=== PATIENT | female | born 1990 | race Caucasian/White ===

== ENCOUNTER → 2019-12-20 | Outpatient (CLI) | payer OTHER ==
--- NOTE | 2019-12-21 08:56 | USB ---
Reason for exam: clinical finding. History: Family history of breast cancer in maternal grandmother. Indicated problem(s): pain in both breasts. Physical Findings: Nurse did not find any significant physical abnormalities on exam. US Breast BILAT Right complete breast ultrasound includes all four quadrants, the retroareolar region and axilla. Finding demonstrates a 0.3 x 0.3 x 0.2cm oval, cystic lesion at 3 o'clock and a 0.5 x 0.3 x 0.2cm oval, cystic lesion at 11 o'clock. Right 10 o'clock palpable dense tissue. Left complete breast ultrasound includes all four quadrants, the retroareolar region and axilla. Finding demonstrates a 0.4 x 0.4 x 0.3cm oval, cystic lesion at 1 o'clock, a 0.6 x 0.7 x 0.3cm oval, cystic lesion at 3 o'clock, a 3.0 x 2.0 x 1.1cm oval, clustered, hypoechoic and bilobed lesion at 3 o'clock, either highly complicated cysts or masses like fibroadenomas, biopsy recommended, a 1.7 x 2.1 x 1.1cm oval, cystic lesion at 9 o'clock and a 1.1 x 1.2 x 0.8cm cystic lesion at 10 o'clock. These results were verbally communicated with the patient and result sheet given to the patient on 12/20/19. ASSESSMENT: Suspicious, BI-RAD 4 RECOMMENDATION: Ultrasound core biopsy of the left breast. (3 o'clock) Called Dr. Whitman's office with mammographic findings and has scheduled an appointment for the patient for 01/05/20 at 1:[address] Man. Biopsy scheduled for 01/06/20 at 10:30. PRELIMINARY REPORT CALLED AND FAXED TO DR. MAN ON 12/20/19.
== END | disposition home or self-care (01) ==
LOC: RADUSWWP 14:56
PROVIDERS: ATTEND Family Medicine
DX: N60.02 Solitary cyst of left breast (principal); N60.01 Solitary cyst of right breast; N64.4 Mastodynia

== ENCOUNTER → 2020-01-05 | Outpatient (CLI) | payer OTHER ==
[2020-01-05 13:04] VITALS: BP 108/72; PULSE 83; RESP 18; TEMP 98.1
--- NOTE | 2020-01-05 13:38 | P.GSHP ---
History of Present Illness H&P Date: 01/05/20 Chief Complaint: abnormal left breast ultra-sound Marlys is a 29 year old white female seen in consultation for Dr. Trejo regarding an abnormal left breast ultrasound. She has a long history of fibrocystic breast changes. She recent bilateral ultrasound performed on . This revealed multiple cysts bilaterally with a specific 3 x 2 x 1.1 cm clustered/bilobed lesion at 3:00 in the left breast for which ultrasound- guided core biopsy was recommended. The patient has not noted any new lumps masses or nodules in her breast although she states her breasts have been nodular for several years. She does not complain of any nipple discharge or skin changes. She is not complaining of any recent trauma or infection in her breast. She does not have any surgery in her breast. Caffeine: coffee and mountain dew daily Nicotine: One pack per day Theophylline: rare Family History: maternal grandmother: bilateral breast cancer maternal aunt: skin cancer paternal grandmother: cancer uncertain of type paternal aunt: cancer uncertain of type Hormonal history: Menarche:14 G0 BCP: < 1 year periods: regular Surgical history: Abscesses underneath both eyelids Scope surgery Medical History: none Social History: Nicotine: 10 years 1 pack per day Alcohol: Wine occasionally Drugs: Negative - Constitutional Constitutional: Reports sweats - EENT Eyes: bilateral as per HPI Ears: right: tinnitus, deny: decreased hearing Ears, nose, mouth and throat: Reports sore throat, Denies headache - Breasts Breasts: bilateral: as per HPI - Cardiovascular Cardiovascular: Denies chest pain, Denies shortness of breath - Respiratory Comment: smoker - Gastrointestinal Gastrointestinal: Denies abdominal pain, Denies diarrhea, Denies nausea, Denies vomiting - Genitourinary (Female) Genitourinary: Denies dysuria, Denies hematuria - Menstruation Menstruation: Reports period normal - Musculoskeletal Musculoskeletal: Denies myalgias - Integumentary Integumentary: Denies pruritus, Denies rash - Neurological Neurological: Denies numbness, Denies weakness - Psychiatric Psychiatric: Reports anxiety, Reports depression - Endocrine Endocrine: Denies fatigue, Denies weight change - Hematologic/Lymphatic Comment: none - Allergic/Immunologic Allergic/Immunologic: Reports as per HPI Past Medical History History of Any Multi-Drug Resistant Organisms: None Reported Smoking Status: Current every day smoker Medications and Allergies Home Medications Medication Instructions Recorded Confirmed Type ALPRAZolam [Xanax] 0.25 mg PO Q8H PRN 01/02/20 01/05/20 History Sertraline [Zoloft] 100 mg PO DAILY 01/02/20 01/05/20 History Multivit with Calcium,Iron,Min 1 each PO DAILY 01/05/20 01/05/20 History [Women's Multivitamin] Allergies Allergy/AdvReac Type Severity Reaction Status Date / Time tioconazole Allergy Swelling Verified 01/05/20 12:58 [From Monistat 1 (tioconazole)] Surgical - Exam Vital Signs Temp Pulse Resp BP Pulse Ox 98.1 F 83 18 108/72 100 01/05/20 13:00 01/05/20 13:00 01/05/20 13:00 01/05/20 13:00 01/05/20 13:00 BMI 22.2 - General well developed, well nourished, no distress - Eyes normal ocular movement - ENT no hearing loss, no congestion - Neck no masses, trachea midline - Respiratory normal respiratory effort, clear to auscultation - Cardiovascular Rhythm: regular Heart Sounds: normal: S1, S2 - Abdomen Abdomen: soft, non tender, no guarding, no rigid, no rebound - Integumentary normal turgor tattoo skin left shoulder - Neurologic no disoriented, no combative - Musculoskeletal normal gait, normal posture - Psychiatric oriented to time, oriented to person, oriented to place, speech is normal, memory intact breast exam: BRA: 36 inspection: bilateral grade 1 ptosis Palpation: Right breast: Multi-positional exam fibrocystic changes Right axilla: No adenopathy of concern Left breast: Multi-positional exam fibrocystic changes, at 3:00 was approximately an 8 x 1 cm area of nodularity which seems to correspond to the ultrasound abnormality for which biopsies been recommended Left axilla: No adenopathy of concern Results Ultrasound results reviewed Assessment and Plan Assessment: Impression: 1. Fibrocystic breast changes bilaterally 2. High caffeine intake 3. Nicotine exposure 4. Ultrasound abnormality left breast 5. Family history breast cancer 6. Palpable abnormality 3:00 left breast Plan: 1. Ultrasound guided core biopsy left breast at 3:00 2. Follow-up appointment after ultrasound core biopsy with particular attention to the palpable abnormality left breast to see if this is resolved 3. Lifestyle modification recommended Risk and benefits of the procedure were discussed with the patient. She understands and wishes to proceed. Risk include but are not limited to bleeding, infection, or reaction to the anesthetic. She wishes to proceed. Lifestyle modifications were also discussed with the patient and she is going to try to decrease her caffeine intake and nicotine exposure. CC: Dr. Whitman encounter 25 minutes, > 50% of time in planning and counselling
== END | disposition home or self-care (01) ==
LOC: WWCWWP 12:47
PROVIDERS: ATTEND Surgery
DX: Z53.9 Procedure and treatment not carried out, unspecified reason (principal)

== ENCOUNTER → 2020-01-06 | Day surgery (SDC) | payer OTHER ==
[2020-01-06 12:51] VITALS: BP 117/70; PULSE 66; RESP 18; TEMP 99
--- NOTE | 2020-01-06 16:07 | USB ---
EXAMINATION TYPE: US biopsy breast VAD LT DATE OF EXAM: 01/06/2020 CLINICAL HISTORY: R92.8 Abnormal Mammogram. TECHNIQUE: Ultrasound guided vaccuum assisted core biopsy of left breast. COMPARISON: 12/20/2019 ultrasound FINDINGS: The ultrasound guided core biopsy procedure was explained to the patient. The risks, benefits, alternatives were discussed. An informed consent was then obtained. Timeout was performed. The patient was placed in supine positioning for imaging and for the procedure. The overlying skin was prepped with betadine and sterilely draped in usual sterile fashion. Lidocaine 1% was used as anesthetic into the skin and deeper breast tissue up to area of concern in the breast. A small skin rah was made with surgical scalpel. Under ultrasound guidance, a 12-gauge vacuum assisted biopsy device was used to obtain 4 core samples. A vessel appeared to be adjacent to the cutting biopsy site of the mammotome needle and additional samples were obtained. A biopsy clip was left in proximal lesion. Patient had some mild vagal symptoms which were treated with cool washcloths and reassurance. Patient responded promptly with resolution of symptoms. Good hemostasis was obtained with direct pressure. Discharge instructions were discussed with the patient. The patient will follow up with the referring physician for results. Postprocedure mammogram: Given the lesion visualization by ultrasound patient age, mammography was deferred at this time. The patient tolerated the procedure well without any immediate complication. The patient was discharged to home in stable condition. Patient will follow-up with her physician for results. IMPRESSION: 1. Successful ultrasound guided biopsy left breast. Pathology Results: Benign LEFT BREAST, ULTRASOUND GUIDED CORE BIOPSY: Fibroadenoma. Recommendation Surgical consult of the left breast. (if the benign lesion, fibroadenoma, is symptomatic or any growth is noted, surgical excision can be considered) [facility]ENTERDeloris
== END ==
LOC: RADUSWWP 09:43
PROVIDERS: ATTEND Surgery
DX: D24.2 Benign neoplasm of left breast (principal); Z88.3 Allergy status to other anti-infective agents
CPT/HCPCS: 88305; 19083; A4648; J2001

== ENCOUNTER → 2020-01-20 | Outpatient (CLI) | payer OTHER ==
--- NOTE | 2020-01-20 16:07 | P.PN ---
Progress Note - Text Progress Note Date: 01/20/20 Marlys is a 29-year-old white female status post ultrasound-guided core biopsy of the left breast on . Pathology is consistent with a fibroadenoma. The patient is made aware of this . Telephone call. She did not come to her postoperative visit secondary to exposure to COVID. She will schedule a follow- up appointment in the near future. She states that she would like to have the fibroadenoma removed as it is palpable.
== END | disposition home or self-care (01) ==
LOC: WWCWWP 13:09
PROVIDERS: ATTEND Surgery
DX: Z53.9 Procedure and treatment not carried out, unspecified reason (principal)

== ENCOUNTER → 2020-03-09 | Outpatient (CLI) | payer OTHER ==
[2020-03-09 16:14] VITALS: BP 118/71; PULSE 75; RESP 16; TEMP 98.1
--- NOTE | 2020-03-09 16:40 | P.PN ---
Subjective Progress Note Date: 03/09/20 Principal diagnosis: fibroadenoma of the left breast Marlys is a 29 year old white female seen in consultation for Dr. Trejo regarding an abnormal left breast ultrasound. She has a long history of fibrocystic breast changes. She recent bilateral ultrasound performed on . This revealed multiple cysts bilaterally with a specific 3 x 2 x 1.1 cm clustered/bilobed lesion at 3:00 in the left breast for which ultrasound-guided core biopsy was recommended. The patient has not noted any new lumps masses or nodules in her breast although she states her breasts have been nodular for several years. She does not complain of any nipple discharge or skin changes. She is not complaining of any recent trauma or infection in her breast. She does not have any surgery in her breast. She had a core biopsy of the area on 01-06-20 which was a fibroadenoma. It is palpable and it so bothering her and she would like to have this removed. Caffeine: coffee and mountain dew daily Nicotine: One pack per day jayden-bromine: rare Family History: maternal grandmother: bilateral breast cancer maternal aunt: skin cancer paternal grandmother: cancer uncertain of type paternal aunt: cancer uncertain of type Hormonal history: Menarche:14 G0 BCP: < 1 year periods: regular Surgical history: Abscesses underneath both eyelids Scope surgery Medical History: none Social History: Nicotine: 10 years 1 pack per day Alcohol: Wine occasionally Drugs: Negative - Constitutional Constitutional: Reports sweats - EENT Eyes: bilateral as per HPI Ears: right: tinnitus, deny: decreased hearing Ears, nose, mouth and throat: Reports sore throat, Denies headache - Breasts Breasts: bilateral: as per HPI - Cardiovascular Cardiovascular: Denies chest pain, Denies shortness of breath - Respiratory Comment: smoker - Gastrointestinal Gastrointestinal: Denies abdominal pain, Denies diarrhea, Denies nausea, Denies vomiting - Genitourinary (Female) Genitourinary: Denies dysuria, Denies hematuria - Menstruation Menstruation: Reports period normal - Musculoskeletal Musculoskeletal: Denies myalgias - Integumentary Integumentary: Denies pruritus, Denies rash - Neurological Neurological: Denies numbness, Denies weakness - Psychiatric Psychiatric: Reports anxiety, Reports depression - Endocrine Endocrine: Denies fatigue, Denies weight change - Hematologic/Lymphatic Comment: none - Allergic/Immunologic Allergic/Immunologic: Reports as per HPI Objective - Vital Signs Vital signs: Vital Signs Temp 98.1 F 03/09/20 16:10 Pulse 75 03/09/20 16:10 Resp 16 03/09/20 16:10 BP 118/71 03/09/20 16:10 Pulse Ox 98 03/09/20 16:10 Intake & Output 03/08/20 03/09/20 03/09/20 18:59 06:59 18:59 Weight 65.771 kg - Exam BMI: 22.7 - Constitutional General appearance: Present: average body habitus - EENT Eyes: Present: EOMI ENT: Present: hearing grossly normal - Neck Neck: Present: normal ROM - Respiratory Respiratory: bilateral: CTA - Cardiovascular Rhythm: regular Heart sounds: normal: S1, S2 - Gastrointestinal General gastrointestinal: Present: normal bowel sounds, soft - Integumentary Integumentary: Present: normal turgor - Musculoskeletal Musculoskeletal: Present: gait normal - Psychiatric Psychiatric: Present: A&O x's 3, appropriate affect, intact judgment & insight - Additional findings Additional findings: breast exam: BRA: 32DD inspection: grade 1/2 ptosis bilateral palpation: right breast: Multi-positional exam fibrocystic changes, dense breast tissue, no masses noted on exam Right axilla: No adenopathy of concern Left breast: Multi-positional exam fibrocystic changes, dense breast tissue, at the 3 o'clock position there is approximately a 2 x 2 cm area which is believed to be consistent with the fibroadenoma. Left axilla: No adenopathy of concern Assessment and Plan Assessment: Impression: 1. left breast fibroadenoma 2. fibrocystic breast disease 3. Patient smokes 1 pack of cigarettes per day 4. Patient drinks caffeinated beverages Plan: needle localization of fibroadenoma and resection in the OR bilateral ultrasound in 6 months Encouraged to modify lifestyle decreasing caffeinated beverages and stop smoking Cc: Dr. Joi Beaulieu encounter 15 minutes > 50% of time in planning and counselling
== END | disposition home or self-care (01) ==
LOC: WWCWWP 15:56
PROVIDERS: ATTEND Surgery
DX: Z53.9 Procedure and treatment not carried out, unspecified reason (principal)

== ENCOUNTER → 2020-03-27 | Day surgery (SDC) | payer OTHER ==
[2020-03-23 11:00] VITALS: BMI 22.4
[~2020-03-27] MED LIST: ALPRAZolam 0.5 MG TAB ONE; DEXAMETHASONE SOD PHOSPHATE 4 MG/ML 1 ML VIAL IV ONE; HEPARIN SODIUM,PORCINE 5,000 UNIT/ML 1 ML VIAL SQ PRN; HYDROmorphone 0.5 MG/0.5 ML SYRINGE IVP PRN; KETOROLAC 15 MG/ML 1 ML VIAL ONE; LACTATED RINGERS 1,000 ML IV SCH; LIDOCAINE 1% (10MG/ML) FOR IV START INTRADERMA ONE; LIDOCAINE 1% INJ 10MG/ML (20 ML MDV) ONE; LIDOCAINE 1% INJ 10MG/ML (20 ML MDV) SQ ONE; MIDAZOLAM 2 MG/2 ML VIAL IV PRN; MIDAZOLAM 2 MG/2 ML VIAL ONE; ONDANSETRON 4 MG/2 ML VIAL IVP ONE; PROPOFOL 10 MG/ML 20 ML VIAL IV ONE; Pre Op ABX Message 1 EACH MISC MISCELLANE ONE; SCOPOLAMINE 1.5MG/72HR PATCH TRANSDERM ONE; fentaNYL (PF) 50 MCG/ML 2 ML AMP ONE
--- NOTE | 2020-03-27 14:55 | P.OP ---
Date of Procedure: 03/27/20 Preoperative Diagnosis: Fibroadenoma left breast Postoperative Diagnosis: Same Procedure(s) Performed: Excision fibroadenoma after needle localization, onco-plastic tissue transfer 39 cm2 Anesthesia: DORIANA Surgeon: Haley Man Estimated Blood Loss (ml): 5 IV fluids (ml): 600 Pathology: other (breast tissue) Condition: stable Disposition: same day Indications for Procedure: growing fibroadenoma Operative Findings: fibroadenoma Description of Procedure: The patient is a 29-year-old white female with a mass noted in her left breast. Core biopsy revealed a fibroadenoma. This was palpable and had been increasing in size. The patient wished for this to be excised. To assure that we remove not only that which we felt but also that which was seen radiographically needle localization was performed pre-procedure. The patient was taken to the radiology suite and needle was placed to localize the area of concern in the left breast. She was then brought to the operating room. Following induction of general anesthesia the left breast was prepped and draped in a sterile fashion. An incision was made and carried down to the hook of the needle. Additionally palpable mass consistent with fibroadenoma was identified. This was excised. The area that was excised was approximately 5 x 3 centimeters. The specimen was painted for orientation. Titanium clips were placed. The specimen was sent to radiology where the area of concern was identified. The superior piller was then mobilized this was noted to be 6 cm x 2 cm. The inferior pillar was mobilized which was noted to be 5 x 2.5 cm. A total mobilization of 37 cm2 was performed. After we were assured that hemostasis was attained the superior and inferior poles were brought together and secured using 3-0 Vicryl suture. The subcutaneous tissue was closed using 3-0 Vicryl suture. The skin was closed using 4-0 Monocryl followed by a nylon suture. The patient tolerated the procedure in stable condition.
--- NOTE | 2020-03-27 14:57 | P.DS ---
Providers Attending physician: Haley Man Primary care physician: Joi Whitman Plan - Discharge Summary Discharge Rx Participant: No New Discharge Prescriptions: No Action Sertraline [Zoloft] 100 mg PO DAILY ALPRAZolam [Xanax] 0.25 mg PO Q8H PRN PRN Reason: Anxiety ISOtretinoin [Myorisan] 40 mg PO DAILY Discharge Medication List ALPRAZolam [Xanax] 0.25 mg PO Q8H PRN 01/02/20 [History] Sertraline [Zoloft] 100 mg PO DAILY 01/02/20 [History] ISOtretinoin [Myorisan] 40 mg PO DAILY 03/23/20 [History] Follow up Appointment(s)/Referral(s): Haley Man MD [STAFF PHYSICIAN] - 1 Week Patient Instructions/Handouts: *Surgery [facility] - (Anesthesia) Discharge Instructions Outpatient Surgery, *Surgery [facility] - Scopalamine Patch Instructions Activity/Diet/Wound Care/Special Instructions: do not drive for 24 hours may shower after 48 hours wear bra at all times Discharge Disposition: HOME SELF-CARE
--- NOTE | 2020-03-27 15:04 | USB ---
EXAM: Needle localization with wire placement. CLINICAL HISTORY: Painful fibroadenoma, family history of left breast. Desired excision of left breast lesion TECHNIQUE: Needle localization with wire placement and surgical excision of area of concern in the left breast. COMPARISON: Prior ultrasounds January 06, 2020 and December 20, 2019 FINDINGS: The procedure of needle localization with wire placement and than surgical excision was explained to the patient. Benefits, alternatives, and risks were discussed. An informed consent was then obtained. Ultrasound used for localization as was used for biopsy. The overlying skin was prepped and draped in usual sterile fashion. Lidocaine is used as anesthetic into the skin and subcutaneous tissue up to the level of area of concern. A 5 cm needle was placed under ultrasound guidance. After penetrating lesion, needle is withdrawn and wires left in place with tip in the lesion. At this point, wire was placed and the needle was withdrawn. The wire was fixed to patient's skin. The patient tolerated the procedure well without any immediate complication. The patient was kept in the radiology department for short stay after the procedure and then taken to surgery for surgical excision. Targeted lesion and wire are identified in specimen ultrasound and radiograph. The patient was kept in hospital for short stay after the procedure and then discharged home in stable condition. IMPRESSION: Successful, uncomplicated needle localization with wire placement and surgical excision of targeted mass in the left breast, full pathology results to follow. Pathology Results: Benign LEFT BREAST, NEEDLE LOCALIZATION EXCISION/LUMPECTOMY: Benign fibroadenomas x 2 with focal usual ductal hyperplasia. Background breast with fibrocystic change with apocrine metaplasia and columnar cell change. Benign fibroadenoma present at medial and posterior margins. Negative for in situ or invasive carcinoma. Recommendation Follow up ultrasound of the left breast in 6 months. SANTOSD
[2020-03-27 15:08] VITALS: TEMP 97.6
[2020-03-27 15:23] VITALS: RESP 16
--- NOTE | 2020-03-27 15:32 | MM ---
Please see same day ultrasound breast localization report for complete details. Pathology Results: Benign LEFT BREAST, NEEDLE LOCALIZATION EXCISION/LUMPECTOMY: Benign fibroadenomas x 2 with focal usual ductal hyperplasia. Background breast with fibrocystic change with apocrine metaplasia and columnar cell change. Benign fibroadenoma present at medial and posterior margins. Negative for in situ or invasive carcinoma. Recommendation Follow up ultrasound of the left breast in 6 months. LILA
[2020-03-27 15:59] VITALS: BP 116/77; PULSE 66
== END | disposition home or self-care (01) ==
LOC: OR 11:20
PROVIDERS: ATTEND Surgery
DX: D24.2 Benign neoplasm of left breast (principal); N60.12 Diffuse cystic mastopathy of left breast; N62 Hypertrophy of breast; N60.82 Other benign mammary dysplasias of left breast; F41.9 Anxiety disorder, unspecified; F17.210 Nicotine dependence, cigarettes, uncomplicated; Z79.899 Other long term (current) drug therapy; Z80.3 Family history of malignant neoplasm of breast; Z80.8 Family history of malignant neoplasm of other organs or systems; Z80.9 Family history of malignant neoplasm, unspecified
CPT/HCPCS: 81025; 88307; 76098; 76999; 19285; 19125; 14301; J2250; J1644; J1100; J2405; J2001; J3010; J1885; J2704

== ENCOUNTER 2020-04-04 12:31 | Emergency (ER) | payer OTHER ==
[2020-04-04 12:36] VITALS: RESP 18
--- NOTE | 2020-04-04 12:56 | ED ---
Fever HPI <Chris Lewis - Last Filed: 04/04/20 15:56> - General Source: patient Mode of arrival: ambulatory Limitations: no limitations <Geo Wu - Last Filed: 04/04/20 20:21> - General Chief Complaint: Fever Stated Complaint: Post surg fever Time Seen by Provider: 04/04/20 12:40 - History of Present Illness Initial Comments: 29-year-old female presents to emergency department with a chief complaint of abdominal bloating and a postop fever. Patient states she had a breast mass removed 8 days ago and following the procedure, she developed abdominal bloating with no significant abdominal discomfort. Patient also reports this morning she had a temperature of 99.7 but did not take any Tylenol or Motrin. Patient states she is "not feeling right" but denies any nausea vomiting or diarrhea. States the incision site on the left breast is healing well. Denies any urinary or vaginal symptoms. Denies cough chest pain shortness of breath. (Geo Wu) - Related Data Home Medications Medication Instructions Recorded Confirmed ALPRAZolam [Xanax] 0.25 mg PO Q8H PRN 01/02/20 04/04/20 Sertraline [Zoloft] 100 mg PO DAILY 01/02/20 04/04/20 ISOtretinoin [Myorisan] 40 mg PO DAILY 03/23/20 04/04/20 Allergies Allergy/AdvReac Type Severity Reaction Status Date / Time tioconazole Allergy Swelling Verified 04/04/20 14:33 [From Monistat 1 (tioconazole)] Review of Systems ROS Other: All systems not noted in ROS Statement are negative. <Chris Lewis - Last Filed: 04/04/20 15:56> ROS Other: All systems not noted in ROS Statement are negative. <Geo Wu - Last Filed: 04/04/20 20:21> ROS Statement: Those systems with pertinent positive or pertinent negative responses have been documented in the HPI. Past Medical History Past Medical History: No Reported History Additional Past Medical History / Comment(s): lt breast mass History of Any Multi-Drug Resistant Organisms: None Reported Additional Past Surgical History / Comment(s): [place] 2009, breast lump removal. egd Past Anesthesia/Blood Transfusion Reactions: No Reported Reaction Past Psychological History: Anxiety, Depression Smoking Status: Current every day smoker Past Alcohol Use History: None Reported Past Drug Use History: None Reported - Past Family History Mother Family Medical History: No Reported History <Geo Wu - Last Filed: 04/04/20 20:21> General Exam Limitations: no limitations General appearance: alert, in no apparent distress Head exam: Present: atraumatic, normocephalic, normal inspection Eye exam: Present: normal appearance, PERRL, EOMI Pupils: Present: normal accommodation ENT exam: Present: normal exam, normal oropharynx, mucous membranes moist, TM's normal bilaterally, normal external ear exam Neck exam: Present: normal inspection, full ROM. Absent: tenderness Respiratory exam: Present: normal lung sounds bilaterally, other (left breast incision site healing well. There is no surrounding erythema or tenderness to palpation.). Absent: respiratory distress Cardiovascular Exam: Present: regular rate, normal rhythm, normal heart sounds GI/Abdominal exam: Present: soft. Absent: distended, tenderness, guarding, rebound Extremities exam: Present: normal inspection, full ROM, normal capillary refill. Absent: tenderness, pedal edema, joint swelling Back exam: Present: normal inspection, full ROM. Absent: tenderness, CVA tenderness (R), CVA tenderness (L) Neurological exam: Present: alert, oriented X3 Psychiatric exam: Present: normal affect, normal mood Skin exam: Present: warm, dry, intact, normal color <Geo Wu - Last Filed: 04/04/20 20:21> Course <Chris Lewis - Last Filed: 04/04/20 15:56> Vital Signs 04/04/20 04/04/20 04/04/20 12:32 14:36 16:10 Temperature 98.5 F 98.2 F Pulse Rate 73 71 77 Respiratory 18 18 18 Rate Blood Pressure 117/77 105/77 112/65 O2 Sat by Pulse 100 98 99 Oximetry - Reevaluation(s) Reevaluation #1: 04/04/20 15:00 Patient reevaluated and reexamined by myself, Dr. Lewis. Patient resting comfortably in bed. Patient states she has had only mild abdominal discomfort, not significant at this time. Abdomen is soft and nontender. Patient states she is having mild discomfort of her left breast rated 4/10. Female tech is present. During evaluation patient does have minimal swelling and tenderness, moderate beneath the incision. Incision itself is clean and dry and intact. No erythema. 04/04/20 15:56 Ultrasound shows some edema near the scar site. Case discussed with Dr. Colleen Bland who will follow up with patient is planned on Thursday. (Chris Lewis) Medical Decision Making - Lab Data Result diagrams: 04/04/20 14:10 04/04/20 14:10 <Chris Lewis - Last Filed: 04/04/20 15:56> - Lab Data Result diagrams: 04/04/20 14:10 04/04/20 14:10 <Geo Wu - Last Filed: 04/04/20 20:21> - Medical Decision Making 29-year-old female presents to emergency Department chief complaint of a fever. On physical examination, patient is resting comfortably. No abdominal or CVA tenderness. Incision site of the left breast appears to be healing well with no signs of infection. CBC CMP unremarkable. Chest x-ray and UA negative for any acute processes. Patient has stable vitals in emergency department and never actually had a fever even at home. Ultrasound of the left breast was obtained showing edema with no other acute findings. Case was discussed with Dr. Lewis who also examined the patient. Dr. Ilya Bland was consulted advised the patient can follow-up in 2 days. Strict return parameters were thoroughly discussed the patient was understanding and agreeable. (Geo Wu) - Lab Data Lab Results 04/04/20 04/04/20 04/04/20 Range/Units 13:27 14:10 14:10 WBC 7.2 (3.8-10.6) k/uL RBC 4.92 (3.80-5.40) m/uL Hgb 14.9 (11.4-16.0) gm/dL Hct 45.1 (34.0-46.0) % MCV 91.6 (80.0-100.0) fL MCH 30.3 (25.0-35.0) pg MCHC 33.1 (31.0-37.0) g/dL RDW 12.4 (11.5-15.5) % Plt Count 324 (150-450) k/uL MPV 6.9 Neutrophils % 60 % Lymphocytes % 29 % Monocytes % 6 % Eosinophils % 3 % Basophils % 1 % Neutrophils # 4.4 (1.3-7.7) k/uL Lymphocytes # 2.1 (1.0-4.8) k/uL Monocytes # 0.4 (0-1.0) k/uL Eosinophils # 0.2 (0-0.7) k/uL Basophils # 0.1 (0-0.2) k/uL Sodium 137 (137-145) mmol/L Potassium 4.1 (3.5-5.1) mmol/L Chloride 101 (98-107) mmol/L Carbon Dioxide 29 (22-30) mmol/L Anion Gap 7 mmol/L BUN 12 (7-17) mg/dL Creatinine 0.81 (0.52-1.04) mg/dL Est GFR (CKD-EPI)AfAm >90 (>60 ml/min/1.73 sqM) Est GFR (CKD-EPI)NonAf >90 (>60 ml/min/1.73 sqM) Glucose 83 (74-99) mg/dL Calcium 9.9 (8.4-10.2) mg/dL Total Bilirubin 0.4 (0.2-1.3) mg/dL AST 53 H (14-36) U/L ALT 71 H (4-34) U/L Alkaline Phosphatase 60 (38-126) U/L Total Protein 7.7 (6.3-8.2) g/dL Albumin 4.5 (3.5-5.0) g/dL Urine Color Yellow Urine Appearance Clear (Clear) Urine pH 5.5 (5.0-8.0) Ur Specific [place] 1.015 (1.001-1.035) Urine Protein Negative (Negative) Urine Glucose (UA) Negative (Negative) Urine Ketones Negative (Negative) Urine Blood Negative (Negative) Urine Nitrite Negative (Negative) Urine Bilirubin Negative (Negative) Urine Urobilinogen <2.0 (<2.0) mg/dL Ur Leukocyte Esterase Negative (Negative) Disposition <Chris Lewis - Last Filed: 04/04/20 15:56> Is patient prescribed a controlled substance at d/c from ED?: No Time of Disposition: 16:02 <Geo Wu - Last Filed: 04/04/20 20:21> Clinical Impression: Abdominal bloating Disposition: HOME SELF-CARE Condition: Stable Instructions (If sedation given, give patient instructions): Gas and Bloating (ED) Additional Instructions: Follow-up with Dr. Ilya Bland on Thursday. Return to emergency department if symptoms worsen. Referrals: Joi Whitman MD [Primary Care Provider] - 1-2 days
--- NOTE | 2020-04-04 13:32 | XR ---
EXAMINATION TYPE: XR chest 2V DATE OF EXAM: 04/04/2020 COMPARISON: NONE HISTORY: Chest pain TECHNIQUE: Frontal and lateral views of the chest are obtained. FINDINGS: There is no focal air space opacity. No evidence for pneumothorax. No pleural effusion. The cardiac silhouette size is within normal limits. The osseous structures are grossly intact. IMPRESSION: 1. No acute cardiopulmonary process.
[2020-04-04 13:59] LABS: Appearance,Urine Clear (Clear); Bilirubin,Urine Negative (Negative); Blood,Urine Negative (Negative); Color,Urine Yellow; Glucose,Urine (UA) Negative (Negative); Ketones,Urine Negative (Negative); Leukocyte Esterase,Urine Negative (Negative); Nitrite,Urine Negative (Negative); PH, Urine 5.5 (5.0-8.0); Protein,Urine Negative (Negative); Specific Gravity,Urine 1.015 (1.001-1.035); Urobilinogen,Urine <2.0 mg/dL (<2.0)
[2020-04-04 14:27] LABS: Basophils # (A) 0.1 k/uL (0-0.2); Basophils % (A) 1 %; Eosinophils # (A) 0.2 k/uL (0-0.7); Eosinophils % (A) 3 %; HCT 45.1 % (34.0-46.0); HGB 14.9 gm/dL (11.4-16.0); Lymphocytes # (A) 2.1 k/uL (1.0-4.8); Lymphocytes % (A) 29 %; MCH 30.3 pg (25.0-35.0); MCHC 33.1 g/dL (31.0-37.0); MCV 91.6 fL (80.0-100.0); Mean Platelet Volume 6.9; Monocytes # (A) 0.4 k/uL (0-1.0); Monocytes % (A) 6 %; Neutrophils # (A) 4.4 k/uL (1.3-7.7); Neutrophils % (A) 60 %; Platelet Count 324 k/uL (150-450); RBC 4.92 m/uL (3.80-5.40); RDW 12.4 % (11.5-15.5); WBC 7.2 k/uL (3.8-10.6)
[2020-04-04 14:46] LABS: ALT 71 U/L (4-34); AST 53 U/L (14-36); African American GFR (CKD) >90 (>60 ml/min/1.73 sqM); Albumin 4.5 g/dL (3.5-5.0); Alkaline Phosphatase 60 U/L (38-126); Anion Gap 7 mmol/L; Blood Urea Nitrogen 12 mg/dL (7-17); Calcium 9.9 mg/dL (8.4-10.2); Carbon Dioxide 29 mmol/L (22-30); Chloride 101 mmol/L (98-107); Glucose 83 mg/dL (74-99); Non-African American GFR(CKD) >90 (>60 ml/min/1.73 sqM); Potassium 4.1 mmol/L (3.5-5.1); Sodium 137 mmol/L (137-145); Total Bilirubin 0.4 mg/dL (0.2-1.3); Total Protein 7.7 g/dL (6.3-8.2)
[2020-04-04 16:33] VITALS: BP 112/65; PULSE 77; TEMP 98.2
--- NOTE | 2020-04-05 09:39 | USB ---
Reason for exam: clinical finding. History: Family history of breast cancer in maternal grandmother. Benign US breast localization LT, March 27, 2020. Benign US biopsy breast VAD LT of the left breast, January 06, 2020. US Breast Limited LT Left limited breast ultrasound including focal area of concern, retroareolar and axilla demonstrates edema noted at scar site. ASSESSMENT: Benign, BI-RAD 2 RECOMMENDATION: Ultrasound of the left breast in 6 months.
== END 2020-04-04 16:10 | disposition home or self-care (01) ==
LOC: EC 12:31
DX: R14.0 Abdominal distension (gaseous) (principal); R60.0 Localized edema; F41.9 Anxiety disorder, unspecified; F32.9 Major depressive disorder, single episode, unspecified; F17.200 Nicotine dependence, unspecified, uncomplicated; Z79.899 Other long term (current) drug therapy; Z88.3 Allergy status to other anti-infective agents
CPT/HCPCS: 36415; 71046; 80053; 81003; 85025; 87040; 99284

== ENCOUNTER → 2020-04-06 | Outpatient (CLI) | payer OTHER ==
[2020-04-06 13:34] VITALS: BP 122/90; PULSE 76; RESP 18; TEMP 98.6
--- NOTE | 2020-04-06 13:58 | P.PN ---
Progress Note - Text Progress Note Date: 04/06/20 Marlys is a 29-year-old white female status post excision of fibroadenoma left breast on 2920. Pathology revealed 2 fibroadenomas with positive margins at the medial and posterior sites. Postprocedure the patient is doing well. She did have some abdominal discomfort and was seen in the emergency room with constipation but nothing related to her biopsy. Physical exam: Lungs: Clear Heart: Regular rate and rhythm Incision: Clean and dry Impression: Fibroadenoma positive margin she may have increased risk of recurrence we will follow closely no evidence of cancer or precancer Plan: Repeat ultrasound left breast in 6 months with physician exam at that time CC: Dr. Whitman
== END | disposition home or self-care (01) ==
LOC: WWCWWP 13:17
PROVIDERS: ATTEND Surgery
DX: D24.2 Benign neoplasm of left breast (principal); Z98.890 Other specified postprocedural states

== ENCOUNTER → 2020-11-16 | Outpatient (CLI) | payer OTHER | END | disposition home or self-care (01) | LOC: LABWHC1 08:48 | PROVIDERS: ATTEND Family Medicine | DX: Z20.822 Contact with and (suspected) exposure to COVID-19 (principal); R05.9 Cough, unspecified; R51.9 Headache, unspecified | CPT/HCPCS: U0003; U0005 ==

== ENCOUNTER → 2021-01-01 | Outpatient (CLI) | payer OTHER ==
--- NOTE | 2021-01-01 09:07 | US ---
EXAMINATION TYPE: US abdomen complete DATE OF EXAM: 01/01/2021 COMPARISON: NONE CLINICAL HISTORY: R10.12 LUQ ABD PAIN,R10.11 RUQ ABD PAIN,R10.13 EPIGASTRIC PA. Pain for the past yea r EXAM MEASUREMENTS: Liver Length: 16.8 cm Gallbladder Wall: 0.2` cm CBD: 0.4 cm Spleen: 9.9 x 3.9 cm Right Kidney: 10.2 x 4.9 x 4.5 cm Left Kidney: 9.6 x 4.0 x 4.6 cm Pancreas: wnl Liver: wnl Gallbladder: wnl Evidence for sonographic Davis's sign: No CBD: wnl Spleen: wnl Right Kidney: No hydronephrosis or masses seen Left Kidney: No hydronephrosis or masses seen Upper IVC: wnl Abd Aorta: wnl The liver is homogenous. The intrahepatic portion of the IVC and entire abdominal aorta are within n ormal limits. There is no evidence of shadowing mobile cholelithiasis. Common bile duct is unremark able. The visualized portions of the pancreas are homogenous. The spleen is unremarkable. Kidneys are symmetric and free of hydronephrosis. No renal lesions are seen. IMPRESSION: Unremarkable study. No acute findings are evident.
--- NOTE | 2021-01-01 09:11 | US ---
EXAMINATION TYPE: US pelvic complete DATE OF EXAM: 01/01/2021 COMPARISON: NONE CLINICAL HISTORY: R10.12 LUQ ABD PAIN,R10.11 RUQ ABD PAIN,R10.13 EPIGASTRIC PA. TECHNIQUE: Transvaginal (TV) and Transabdominal (TA) . Transabdominal sonographic images of the pel vis were acquired. Transvaginal sonographic images were medically necessary to better assess the fol lowing anatomy: Ovaries Date of LMP: 12/28/20 EXAM MEASUREMENTS: Uterus: 7.0 x 5.3 x 4.2 cm Endometrial Stripe: 0.5 cm Right Ovary: 2.5 x 1.5 x 1.7 cm Left Ovary: 3.4 x 2.8 x 2.3 cm 1. Uterus: Anteverted Multiple Hypoechoic areas seen 2. Endometrium: wnl 3. Right Ovary: Multiple follicles seen 4. Left Ovary: Multiple follicles seen 5. Bilateral Adnexa: wnl 6. Posterior cul-de-sac: wnl Multiple hypoechoic areas seen in uterus 1.) 1.0 x 1.12 x 0.7cm 2.)1.1 x 1.1 x 0.8cm 3.) 1.7 x1.4 x 1.2cm Heterogeneous anteverted uterus. Normal appearing endometrial stripe. Some peripheral small hypoechoi c lesions in the uterus noted on transvaginal imaging. No free fluid. Both ovaries symmetric and normal in size with scattered peripheral follicles IMPRESSION: Few small peripheral subserosal fibroids otherwise unremarkable study.
== END | disposition home or self-care (01) ==
LOC: RADUSWWP 07:32
PROVIDERS: ATTEND Family Medicine
DX: D25.2 Subserosal leiomyoma of uterus (principal); R10.12 Left upper quadrant pain
CPT/HCPCS: 76700; 76830; 76856

== ENCOUNTER 2021-08-18 09:44 | Emergency (ER) | payer OTHER ==
[2021-08-18 09:51] VITALS: RESP 16; TEMP 97.7
--- NOTE | 2021-08-18 10:32 | ED ---
General Adult HPI - General Chief complaint: Chest Pain Stated complaint: chest pain & vomiting Time Seen by Provider: 08/18/21 09:50 Source: patient, RN notes reviewed, old records reviewed Mode of arrival: ambulatory Limitations: no limitations - History of Present Illness Initial comments: This is a 30-year-old female presents emergency Department complaining of right- sided chest pain. Patient states she swallowed a omeprazole pill this morning he felt like it was stuck so she drank a bunch of water then she started vomiting and continued to vomit for a while and the chest pain on the right remains. Patient states felt like the pain started in the epigastric area and radiated up. Patient denies any difficulty breathing or shortness of breath. Patient denied any diaphoretic episodes. Patient denies any nausea currently. Patient states she does have a history of anxiety. Patient denies any fever chills or cough. Patient denies any calf pain or swelling of the legs. - Related Data Home Medications Medication Instructions Recorded Confirmed ALPRAZolam [Xanax] 0.25 mg PO Q8H PRN 01/02/20 04/06/20 Sertraline [Zoloft] 100 mg PO DAILY 01/02/20 04/06/20 ISOtretinoin [Myorisan] 40 mg PO DAILY 03/23/20 04/06/20 Allergies Allergy/AdvReac Type Severity Reaction Status Date / Time tioconazole Allergy Swelling Verified 08/18/21 09:51 [From Monistat 1 (tioconazole)] Review of Systems ROS Statement: Those systems with pertinent positive or pertinent negative responses have been documented in the HPI. ROS Other: All systems not noted in ROS Statement are negative. Past Medical History Past Medical History: No Reported History Additional Past Medical History / Comment(s): lt breast mass History of Any Multi-Drug Resistant Organisms: None Reported Additional Past Surgical History / Comment(s): [place] 2010, breast lump removal. egd Past Anesthesia/Blood Transfusion Reactions: No Reported Reaction Past Psychological History: Anxiety, Depression Smoking Status: Current every day smoker Past Alcohol Use History: None Reported Past Drug Use History: None Reported - Past Family History Mother Family Medical History: No Reported History General Exam - General Exam Comments Initial Comments: GENERAL: Patient is well-developed and well-nourished. Patient is nontoxic and well- hydrated and is in mild distress. ENT: Neck is soft and supple. No significant lymphadenopathy is noted. Oropharynx is clear. Moist mucous membranes. Neck has full range of motion without eliciting any pain. EYES: The sclera were anicteric and conjunctiva were pink and moist. Extraocular movements were intact and pupils were equal round and reactive to light. Eyelids were unremarkable. PULMONARY: Unlabored respirations. Good breath sounds bilaterally. No audible rales rhonchi or wheezing was noted. CARDIOVASCULAR: There is a regular rate and rhythm without any murmurs gallops or rubs. ABDOMEN: Soft and nontender with normal bowel sounds. SKIN: Skin is clear with no lesions or rashes and otherwise unremarkable. NEUROLOGIC: Patient is alert and oriented x3. Cranial nerves II through XII are grossly intact. Motor and sensory are also intact. Normal speech, volume and content. Symmetrical smile. MUSCULOSKELETAL: Normal extremities with adequate strength and full range of motion. LYMPHATICS: No significant lymphadenopathy is noted PSYCHIATRIC: Patient appears mildly anxious. Limitations: no limitations Course Vital Signs 08/18/21 08/18/21 09:49 11:12 Temperature 97.7 F Pulse Rate 69 57 L Respiratory 16 16 Rate Blood Pressure 128/82 114/72 O2 Sat by Pulse 100 98 Oximetry Medical Decision Making - Medical Decision Making EKG shows sinus bradycardia 55 bpm SC interval 215 QRSs 89 QT intervals 4:30 QTC is 420. Patient's EKG shows no ST segment elevation or depression. Patient's chest x-ray showed no acute abnormality. Patient did not want to wait for reassessment and she signed out AMA - Lab Data Result diagrams: 08/18/21 11:00 08/18/21 11:00 Lab Results 08/18/21 08/18/21 Range/Units 11:00 11:00 WBC 12.2 H (3.8-10.6) k/uL RBC 4.12 (3.80-5.40) m/uL Hgb 12.8 (11.4-16.0) gm/dL Hct 38.2 (34.0-46.0) % MCV 92.7 (80.0-100.0) fL MCH 31.2 (25.0-35.0) pg MCHC 33.6 (31.0-37.0) g/dL RDW 13.3 (11.5-15.5) % Plt Count 279 (150-450) k/uL MPV 7.3 Neutrophils % 77 % Lymphocytes % 13 % Monocytes % 5 % Eosinophils % 3 % Basophils % 1 % Neutrophils # 9.4 H (1.3-7.7) k/uL Lymphocytes # 1.6 (1.0-4.8) k/uL Monocytes # 0.6 (0-1.0) k/uL Eosinophils # 0.3 (0-0.7) k/uL Basophils # 0.2 (0-0.2) k/uL Sodium 138 (137-145) mmol/L Potassium 4.0 (3.5-5.1) mmol/L Chloride 105 (98-107) mmol/L Carbon Dioxide 27 (22-30) mmol/L Anion Gap 6 mmol/L BUN 14 (7-17) mg/dL Creatinine 0.83 (0.52-1.04) mg/dL Est GFR (CKD-EPI)AfAm >90 (>60 ml/min/1.73 sqM) Est GFR (CKD-EPI)NonAf >90 (>60 ml/min/1.73 sqM) Glucose 79 (74-99) mg/dL Calcium 8.8 (8.4-10.2) mg/dL Total Bilirubin 0.1 L (0.2-1.3) mg/dL AST 20 (14-36) U/L ALT 10 (4-34) U/L Alkaline Phosphatase 50 (38-126) U/L Total Protein 6.8 (6.3-8.2) g/dL Albumin 4.1 (3.5-5.0) g/dL Lipase 51 (23-300) U/L Disposition Clinical Impression: Chest pain Disposition: Left Against Medical Advice Condition: Good Is patient prescribed a controlled substance at d/c from ED?: No Referrals: None,Stated [REFERRING] - 1-2 days Time of Disposition: 11:33
--- NOTE | 2021-08-18 11:08 | XR ---
EXAMINATION TYPE: XR chest 2V DATE OF EXAM: 08/18/2021 10:41 AM COMPARISON: Chest radiographs from 04/04/2020 TECHNIQUE: XR chest 2V Frontal and lateral views of the chest. CLINICAL INDICATION:Female, 30 years old with history of Difficulty breathing ; FINDINGS: Lungs/Pleura: There is no evidence of pleural effusion, focal consolidation, or pneumothorax. Pulmonary vascularity: Unremarkable. Heart/mediastinum: Cardiomediastinal silhouette is unremarkable. Musculoskeletal: No acute osseous pathology. IMPRESSION: No acute cardiopulmonary disease/process.
[2021-08-18 11:12] VITALS: BP 114/72; PULSE 57
[2021-08-18 11:13] LABS: Basophils # (A) 0.2 k/uL (0-0.2); Basophils % (A) 1 %; Eosinophils # (A) 0.3 k/uL (0-0.7); Eosinophils % (A) 3 %; HCT 38.2 % (34.0-46.0); HGB 12.8 gm/dL (11.4-16.0); Lymphocytes # (A) 1.6 k/uL (1.0-4.8); Lymphocytes % (A) 13 %; MCH 31.2 pg (25.0-35.0); MCHC 33.6 g/dL (31.0-37.0); MCV 92.7 fL (80.0-100.0); Mean Platelet Volume 7.3; Monocytes # (A) 0.6 k/uL (0-1.0); Monocytes % (A) 5 %; Neutrophils # (A) 9.4 k/uL (1.3-7.7); Neutrophils % (A) 77 %; Platelet Count 279 k/uL (150-450); RBC 4.12 m/uL (3.80-5.40); RDW 13.3 % (11.5-15.5); WBC 12.2 k/uL (3.8-10.6)
[2021-08-18 11:23] LABS: ALT 10 U/L (4-34); AST 20 U/L (14-36); African American GFR (CKD) >90 (>60 ml/min/1.73 sqM); Albumin 4.1 g/dL (3.5-5.0); Alkaline Phosphatase 50 U/L (38-126); Anion Gap 6 mmol/L; Blood Urea Nitrogen 14 mg/dL (7-17); Calcium 8.8 mg/dL (8.4-10.2); Carbon Dioxide 27 mmol/L (22-30); Chloride 105 mmol/L (98-107); Glucose 79 mg/dL (74-99); Lipase 51 U/L (23-300); Non-African American GFR(CKD) >90 (>60 ml/min/1.73 sqM); Sodium 138 mmol/L (137-145); Total Bilirubin 0.1 mg/dL (0.2-1.3); Total Protein 6.8 g/dL (6.3-8.2)
== END 2021-08-18 11:42 | disposition left against medical advice (07) ==
LOC: EC 09:44
DX: R07.9 Chest pain, unspecified (principal); F41.9 Anxiety disorder, unspecified; F32.A Depression, unspecified; F17.200 Nicotine dependence, unspecified, uncomplicated; Z88.1 Allergy status to other antibiotic agents
CPT/HCPCS: 36415; 71046; 80053; 83690; 85025; 99285

== ENCOUNTER 2021-11-30 11:12 | Emergency (ER) | payer OTHER ==
[2021-11-30 11:30] VITALS: BP 116/74; PULSE 98; RESP 16; TEMP 98.7
[2021-11-30] MEDS ORDERED: SODIUM CHLORIDE 0.9% 1,000 ML IV STA (12:50)
[2021-11-30] MEDS ORDERED: KETOROLAC 15 MG/ML 1 ML VIAL IVP STA (12:50)
[2021-11-30] MEDS ORDERED: ONDANSETRON 4 MG/2 ML VIAL IVP STA (12:50)
[2021-11-30 13:06] LABS: Appearance,Urine Cloudy (Clear); Bacteria,Urine Rare /hpf; Bilirubin,Urine Negative (Negative); Blood,Urine Large (Negative); Color,Urine Yellow; Glucose,Urine (UA) Negative (Negative); Ketones,Urine Negative (Negative); Leukocyte Esterase,Urine Moderate (Negative); Mucus,Urine Rare /hpf; Nitrite,Urine Negative (Negative); PH, Urine 6.5 (5.0-8.0); Protein,Urine Trace (Negative); RBC,Urine 1 /hpf (0-5); Specific Gravity,Urine 1.021 (1.001-1.035); Squamous Epithelial Cell,Urine 4 /hpf (0-4); Urobilinogen,Urine <2.0 mg/dL (<2.0); WBC,Urine 9 /hpf (0-5)
--- NOTE | 2021-11-30 13:07 | ED ---
Abdominal Pain HPI - General Chief Complaint: Vaginal Bleeding Stated Complaint: vaginal bleeding Time Seen by Provider: 11/30/21 12:28 Source: patient, RN notes reviewed Mode of arrival: ambulatory Limitations: no limitations - History of Present Illness Initial Comments: This is a 31-year-old female who presents to the emergency department with abdominal pain and vaginal bleeding. States that 2 days ago, she had unprotected intercourse with her boyfriend. She had internal pain at that time, which she has never experienced before. Today, she started to experience vaginal bleeding. Her last menstrual period was 2 weeks ago. In addition to the bleeding, she feels nauseous with diffuse abdominal pain. Overall, states that she's never had these symptoms before. 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 Denies any fevers, chills, sore throat, cough, dyspnea, chest pain, palpitations, vomiting, diarrhea, back pain, or headaches. MD Complaint: abdominal pain Onset/Timin -: days(s) Location: LLQ, RLQ, suprapubic Associated Symptoms: nausea - Related Data Home Medications Medication Instructions Recorded Confirmed ALPRAZolam [Xanax] 0.25 mg PO Q8H PRN 01/02/20 04/06/20 Sertraline [Zoloft] 100 mg PO DAILY 01/02/20 04/06/20 ISOtretinoin [Myorisan] 40 mg PO DAILY 03/23/20 04/06/20 Previous Rx's Medication Instructions Recorded Cephalexin [Keflex] 1,000 mg PO Q12HR 5 Days #20 cap 11/30/21 Ketorolac [Toradol] 10 mg PO Q6HR PRN #12 tab 11/30/21 Ondansetron Odt [Zofran Odt] 4 mg PO Q8HR PRN #20 tab 11/30/21 Allergies Allergy/AdvReac Type Severity Reaction Status Date / Time tioconazole Allergy Swelling Verified 11/30/21 11:28 [From Monistat 1 (tioconazole)] Review of Systems ROS Statement: Those systems with pertinent positive or pertinent negative responses have been documented in the HPI. ROS Other: All systems not noted in ROS Statement are negative. Past Medical History Past Medical History: No Reported History Additional Past Medical History / Comment(s): lt breast mass History of Any Multi-Drug Resistant Organisms: None Reported Additional Past Surgical History / Comment(s): [place] [facility] 2010, breast lump removal. egd Past Anesthesia/Blood Transfusion Reactions: No Reported Reaction Past Psychological History: Anxiety, Depression Smoking Status: Current every day smoker Past Alcohol Use History: None Reported Past Drug Use History: None Reported - Past Family History Mother Family Medical History: No Reported History General Exam Limitations: no limitations General appearance: alert, in no apparent distress Head exam: Present: atraumatic, normocephalic, normal inspection Respiratory exam: Present: normal lung sounds bilaterally. Absent: respiratory distress, wheezes, rales, rhonchi, stridor Cardiovascular Exam: Present: regular rate, normal rhythm, normal heart sounds. Absent: systolic murmur, diastolic murmur, rubs, gallop, clicks GI/Abdominal exam: Present: soft, tenderness (Diffuse), normal bowel sounds. Absent: distended, guarding, rebound Neurological exam: Present: alert, oriented X3, CN II-XII intact Psychiatric exam: Present: normal affect, normal mood Skin exam: Present: warm, dry, intact, normal color. Absent: rash Course Vital Signs 11/30/21 11:28 Temperature 98.7 F Pulse Rate 98 Respiratory 16 Rate Blood Pressure 116/74 O2 Sat by Pulse 99 Oximetry Medical Decision Making - Medical Decision Making This is a 31-year-old female who presents to the emergency department for abdominal pain. Urinalysis is positive for blood and moderate leukoesterase and may be consistent with a mild urinary tract infection. HCG negative. GC and chlamydia testing ordered from urine. Discussed with the patient that results take a couple of days to come back, however I did offer prophylactic treatment, which the patient declined. Patient did have notable right lower quadrant tenderness, and blood work was subsequently obtained for further evaluation of an infectious process. Lab work reveals mild leukocytosis. Ultrasound of the pelvis and appendix ordered. She was given Zofran and Toradol for symptomatic management, which she states was very effective. Pelvic ultrasound does reveal multiple uterine fibroids and the appendix was not well visualized. Discussed with the patient the options of proceeding with a computed tomography scan for further evaluation of her appendix versus discharge home with symptom monitoring and returning if they worsen in any way. Patient declines a computed tomography scan at that time and requests discharge home. Discussed that the bleeding may be related to the uterine fibroids, which can also cause abdominal pain, bloating, and constipation. Intermenstrual bleeding is also a symptoms somewhat and may experience and does not often a cause for concern. Additionally, she has a follow-up scheduled with gynecology next month for further evaluation of ongoing symptoms. Prescription for Zofran and Toradol provided for symptomatic management. She was also given a 5 day course of Keflex to treat possible urinary tract infection. Patient became very belligerent right after discharge. She was yelling at the staff saying that we did not do anything to treat her symptoms or diagnose her appropriately. we did discuss that we did a full workup including labs and imaging on her. Additionally, I offered further imaging, which the patient declined. We also discussed that we had possible causes of her bleeding, however we are unable to determine a definitive diagnosis at this time, and we cannot always give patients a definitive diagnosis for their symptoms. Patient was yelling expletives at the staff and left without signing any paperwork. Again, the patient had a very thorough workup, and the cause for this explosion is not clear. Return precautions reviewed in depth, the patient is instructed to return to the emergency department with any new, worsening, or concerning symptoms. Patient verbalized understanding. This case was discussed in detail with the attending ED physician. Presentation, findings, and treatment plan discussed in detail as well. - Lab Data Result diagrams: 11/30/21 13:17 11/30/21 13:17 Lab Results 11/30/21 11/30/21 11/30/21 Range/Units 12:31 12:31 13:17 WBC 10.8 H (3.8-10.6) k/uL RBC 4.59 (3.80-5.40) m/uL Hgb 14.3 (11.4-16.0) gm/dL Hct 42.6 (34.0-46.0) % MCV 92.8 (80.0-100.0) fL MCH 31.1 (25.0-35.0) pg MCHC 33.6 (31.0-37.0) g/dL RDW 13.2 (11.5-15.5) % Plt Count 277 (150-450) k/uL MPV 8.0 Neutrophils % 72 % Lymphocytes % 18 % Monocytes % 5 % Eosinophils % 2 % Basophils % 1 % Neutrophils # 7.7 (1.3-7.7) k/uL Lymphocytes # 2.0 (1.0-4.8) k/uL Monocytes # 0.6 (0-1.0) k/uL Eosinophils # 0.3 (0-0.7) k/uL Basophils # 0.1 (0-0.2) k/uL Sodium (137-145) mmol/L Potassium (3.5-5.1) mmol/L Chloride (98-107) mmol/L Carbon Dioxide (22-30) mmol/L Anion Gap mmol/L BUN (7-17) mg/dL Creatinine (0.52-1.04) mg/dL Est GFR (CKD-EPI)AfAm (>60 ml/min/1.73 sqM) Est GFR (CKD-EPI)NonAf (>60 ml/min/1.73 sqM) Glucose (74-99) mg/dL Calcium (8.4-10.2) mg/dL Total Bilirubin (0.2-1.3) mg/dL AST (14-36) U/L ALT (4-34) U/L Alkaline Phosphatase (38-126) U/L Total Protein (6.3-8.2) g/dL Albumin (3.5-5.0) g/dL Amylase (30-110) U/L Lipase (23-300) U/L Urine Color Yellow Urine Appearance Cloudy H (Clear) Urine pH 6.5 (5.0-8.0) Ur Specific [place] 1.021 (1.001-1.035) Urine Protein Trace H (Negative) Urine Glucose (UA) Negative (Negative) Urine Ketones Negative (Negative) Urine Blood Large H (Negative) Urine Nitrite Negative (Negative) Urine Bilirubin Negative (Negative) Urine Urobilinogen <2.0 (<2.0) mg/dL Ur Leukocyte Esterase Moderate H (Negative) Urine RBC 1 (0-5) /hpf Urine WBC 9 H (0-5) /hpf Ur Squamous Epith Cells 4 (0-4) /hpf Urine Bacteria Rare H (None) /hpf Urine Mucus Rare H (None) /hpf Urine HCG, Qual Not Detected (Not Detectd) 11/30/21 Range/Units 13:17 WBC (3.8-10.6) k/uL RBC (3.80-5.40) m/uL Hgb (11.4-16.0) gm/dL Hct (34.0-46.0) % MCV (80.0-100.0) fL MCH (25.0-35.0) pg MCHC (31.0-37.0) g/dL RDW (11.5-15.5) % Plt Count (150-450) k/uL MPV Neutrophils % % Lymphocytes % % Monocytes % % Eosinophils % % Basophils % % Neutrophils # (1.3-7.7) k/uL Lymphocytes # (1.0-4.8) k/uL Monocytes # (0-1.0) k/uL Eosinophils # (0-0.7) k/uL Basophils # (0-0.2) k/uL Sodium 139 (137-145) mmol/L Potassium 4.2 (3.5-5.1) mmol/L Chloride 101 (98-107) mmol/L Carbon Dioxide 28 (22-30) mmol/L Anion Gap 10 mmol/L BUN 11 (7-17) mg/dL Creatinine 0.91 (0.52-1.04) mg/dL Est GFR (CKD-EPI)AfAm >90 (>60 ml/min/1.73 sqM) Est GFR (CKD-EPI)NonAf 85 (>60 ml/min/1.73 sqM) Glucose 92 (74-99) mg/dL Calcium 9.0 (8.4-10.2) mg/dL Total Bilirubin 0.4 (0.2-1.3) mg/dL AST 21 (14-36) U/L ALT 14 (4-34) U/L Alkaline Phosphatase 54 (38-126) U/L Total Protein 7.3 (6.3-8.2) g/dL Albumin 4.5 (3.5-5.0) g/dL Amylase 77 (30-110) U/L Lipase 68 (23-300) U/L Urine Color Urine Appearance (Clear) Urine pH (5.0-8.0) Ur Specific [place] (1.001-1.035) Urine Protein (Negative) Urine Glucose (UA) (Negative) Urine Ketones (Negative) Urine Blood (Negative) Urine Nitrite (Negative) Urine Bilirubin (Negative) Urine Urobilinogen (<2.0) mg/dL Ur Leukocyte Esterase (Negative) Urine RBC (0-5) /hpf Urine WBC (0-5) /hpf Ur Squamous Epith Cells (0-4) /hpf Urine Bacteria (None) /hpf Urine Mucus (None) /hpf Urine HCG, Qual (Not Detectd) - Radiology Data Radiology results: report reviewed, image reviewed Disposition Clinical Impression: Uterine fibroid, Dysfunctional uterine bleeding Disposition: HOME SELF-CARE Instructions (If sedation given, give patient instructions): Abnormal (Dysfunctional) Uterine Bleeding (ED) Additional Instructions: Return to the emergency department with any new, worsening, or concerning symptoms, especially if you develop worsening abdominal pain. Take the Toradol up to every 6 hours as needed for pain. Do not take [id number] anti-inflammatories such as Aleve when you are taking the Toradol. The Zofran can be taken up to every 8 hours as needed for nausea and vomiting. Take the antibiotic as prescribed for 5 days. Follow-up with your judicial assistant as scheduled. Follow up with your primary care provider in 1-2 days. Prescriptions: Cephalexin [Keflex] 1,000 mg PO Q12HR 5 Days #20 cap Ketorolac [Toradol] 10 mg PO Q6HR PRN #12 tab PRN Reason: Pain Ondansetron Odt [Zofran Odt] 4 mg PO Q8HR PRN #20 tab PRN Reason: Nausea And Vomiting Is patient prescribed a controlled substance at d/c from ED?: No Referrals: Joi Whitman MD [Primary Care Provider] - 1-2 days
[2021-11-30] MEDS ORDERED: ONDANSETRON ODT 4 MG TAB PO STA (13:28)
[2021-11-30] MEDS ORDERED: KETOROLAC 15 MG/ML 1 ML VIAL IM STA (13:28)
[2021-11-30 13:35] LABS: Basophils # (A) 0.1 k/uL (0-0.2); Basophils % (A) 1 %; Eosinophils # (A) 0.3 k/uL (0-0.7); Eosinophils % (A) 2 %; HCT 42.6 % (34.0-46.0); HGB 14.3 gm/dL (11.4-16.0); Lymphocytes % (A) 18 %; MCH 31.1 pg (25.0-35.0); MCHC 33.6 g/dL (31.0-37.0); MCV 92.8 fL (80.0-100.0); Monocytes # (A) 0.6 k/uL (0-1.0); Monocytes % (A) 5 %; Neutrophils # (A) 7.7 k/uL (1.3-7.7); Neutrophils % (A) 72 %; Platelet Count 277 k/uL (150-450); RBC 4.59 m/uL (3.80-5.40); RDW 13.2 % (11.5-15.5); WBC 10.8 k/uL (3.8-10.6)
[2021-11-30 13:46] LABS: ALT 14 U/L (4-34); AST 21 U/L (14-36); African American GFR (CKD) >90 (>60 ml/min/1.73 sqM); Albumin 4.5 g/dL (3.5-5.0); Alkaline Phosphatase 54 U/L (38-126); Amylase 77 U/L (30-110); Anion Gap 10 mmol/L; Blood Urea Nitrogen 11 mg/dL (7-17); Carbon Dioxide 28 mmol/L (22-30); Chloride 101 mmol/L (98-107); Glucose 92 mg/dL (74-99); Lipase 68 U/L (23-300); Non-African American GFR(CKD) 85 (>60 ml/min/1.73 sqM); Potassium 4.2 mmol/L (3.5-5.1); Sodium 139 mmol/L (137-145); Total Bilirubin 0.4 mg/dL (0.2-1.3); Total Protein 7.3 g/dL (6.3-8.2)
--- NOTE | 2021-11-30 14:30 | US ---
EXAMINATION TYPE: US transvaginal DATE OF EXAM: 11/30/2021 COMPARISON: NONE CLINICAL HISTORY: Pelvic pain and vaginal bleeding. Irregular vaginal bleeding. Right pelvic pain TECHNIQUE: Transvaginal (TV). Date of LMP: 2 weeks ago EXAM MEASUREMENTS: Uterus: 8.1 x 4.0 x 4.9 cm Endometrial Stripe: 0.4 cm Right Ovary: 3.5 x 2.2 x 2.1 cm Left Ovary: 3.1 x 1.7 x 1.5 cm 1. Uterus: Anteverted Multiple fibroids noted, largest = 2.0cm 2. Endometrium: Normal in appearance. 3. Right Ovary: Normal in appearance. Bilateral follicular changes are present. 4. Left Ovary: Normal in appearance. Bilateral follicular changes are present. Spectral, color and waveform doppler imaging shows good arterial and venous flow within the ovaries ; there is no evidence for ovarian torsion. 5. Bilateral Adnexa: Normal in appearance. 6. Posterior cul-de-sac: Trace free fluid in the posterior cul-de-sac. IMPRESSION: 1. No sonographic evidence for acute abnormality. 2. Fibroid uterus.
--- NOTE | 2021-11-30 14:50 | US ---
EXAMINATION TYPE: US abdomen APPY DATE OF EXAM: 11/30/2021 COMPARISON: NONE CLINICAL HISTORY: RLQ and periumbilical pain. RLQ pain for 2 days. No fever. No vomiting TECHNIQUE: Multiple sonographic images of the right lower quadrant were obtained with graded compress ion. FINDINGS: APPENDIX AP Diameter (normal < 6mm): Non-visualization of the appendix. Is the appendix seen in its entirety from the proximal cecum to distal end: No dilated, blind ending tubular structure to suggest an enlarged appendix. Is there inflammatory changes or free fluid present: multiple lymph nodes noted within RLQ, largest measures up to 1.1cm IMPRESSION: 1. Non-visualization of the appendix. No visualized fluid collections within the right lower quadrant . 2. Nonspecific prominent lymph nodes in the right lower quadrant.
[2021-12-03 14:16] LABS: C. trachomatis,PCR Negative (Neg,Equiv); Chlamydia trachomatis Source Urine; N. gonorrhoeae,PCR Negative (Neg,Equiv); Neisseria Source Urine
== END 2021-11-30 15:13 | disposition home or self-care (01) ==
LOC: EC 11:12
DX: N93.8 Other specified abnormal uterine and vaginal bleeding (principal); F17.200 Nicotine dependence, unspecified, uncomplicated; D25.9 Leiomyoma of uterus, unspecified; F41.9 Anxiety disorder, unspecified; F32.A Depression, unspecified; Z79.899 Other long term (current) drug therapy; Z88.1 Allergy status to other antibiotic agents
CPT/HCPCS: 99284 ×2; 96372 ×2; 36415; 80053; 82150; 83690; 85025; 81001; 81025; 87491; 87591; 93975; 76705; 76830; J1885